=== PATIENT | female | born 2000 | race Caucasian/White ===

== ENCOUNTER 2024-12-08 13:28 | Inpatient (IN) | payer OTHER, SELFPAY ==
[2024-12-08] VITALS (13 sets, daily range): BP systolic 126–179; BP diastolic 56–102; BMI 19.4
--- NOTE | 2024-12-08 08:43 | ED.GENMED ---
History of Present Illness
General
Chief Complaint: Withdrawal Symptoms
Source: patient
Exam Limitations: none
Time Seen by Provider: 12/08/24 08:01
Nursing documentation reviewed up to this point in time: agreed with
History of Present Illness
History of Present Illness:
The patient is a 24-year-old female who arrives from [facility] with complaints of xylazine withdrawal. Patient reports feeling dizzy, sweaty, nausea, feeling anxious, and is vomiting. Patient reports she got to present at 9:00 last night. Patient
denies being given anything, however, it is reported that the patient was given Tylenol 3, clonidine and IM Zofran at around 7 AM this morning. Patient is actively vomiting at the bedside.
Past History
Past History
ED Past Medical History: Other
ED Past Surgical History: Other
Social History
Tobacco: Smoker
Alcohol: None
Drug: IVDA
Personal: Single
Living: [facility]
Employment: Not employed
Family History
Family History: Other
Review of Systems
Review of Systems
Allergies reviewed?: Yes
All Other Systems: ROS reviewed and negative except as documented in HPI and ROS
Constitutional: Reports fatigue
EENT: Reports no symptoms
Respiratory: Reports no symptoms
Cardiac: Reports no symptoms
ABD/GI: Reports nausea, vomiting and anorexia
: Reports no symptoms
Musculoskeletal: Reports no symptoms
Skin: Reports no symptoms
Neurological: Reports headache
Endocrine: Reports no symptoms
Hematologic/Lymphatic: Reports no symptoms
Psychiatric: Reports anxiety
Phy Exam
Physical Exam
Physical Exam:
Physical Exam
General: Patient appears very anxious, pale and tremorous, diaphoretic
Neck: supple. no meningeal signs. Dry mucous membrane
Heart: Tachycardic
Lungs: no acute respiratory distress. clear bilaterally
Abdomen: normal bowel sounds. not tender. no CVAT
Neuro: alert and oriented. no focal neurological deficits
Skin: Track gleason on upper extremities bilaterally
Psychiatric: Cooperative
Extremities: no edema. no calf tenderness. negative homans. good distal pulses
Course
Orders/Labs/Results
Orders:
Orders
12/08/24 08:04
Electrocardiogram (*1) Urgent
Reason for Study: Other
Other Reason for Exam: withdrawal
12/08/24 08:23
Clonidine [Catapres] 0.1 mg PO NOW STA
12/08/24 08:33
Complete Blood Count/With Diff Urgent
Comprehensive Metabolic Panel Urgent
HCG, Serum Qualitative Screen Urgent
Magnesium Urgent
12/08/24 08:37
0.9% Sodium Chloride 1000 ml [Nss] 1,500 ml IV BOLUS
Test Result ONCE
12/08/24 10:47
Fentanyl, Urine Urgent
Lactic Acid Urgent
Urinalysis Reflex To Culture Urgent
Date Specimen was Collected: 12/08/24
Time Specimen was Collected: 09:52
Urine Drug Abuse Screen Urgent
Date Specimen was Collected: 12/08/24
Time Specimen was Collected: 09:52
Urine Microscopic Reflex Cult Urgent
Abnormal Lab Results
12/08/24 12/08/24
08:33 10:47
WBC 40.0 H 10^3/uL
(4.8-10.8)
RBC 4.04 L 10^6/uL
(4.20-5.40)
Hgb 11.8 L g/dL
(12.0-16.0)
Hct 33.4 L %
(37.0-47.0)
Plt Count 512 H 10^3/uL
(130-400)
MPV 11.0 H fL
(7.4-10.4)
Abs Immat Gran (auto) 0.3 H 10^3/uL
(0-0.05)
Absolute Neuts (auto) 37.2 H 10^3/uL
(1.4-6.5)
Absolute Monos (auto) 0.9 H 10^3/uL
(0.1-0.6)
Immature Gran % 0.8 H %
(0-0.5)
Neutrophils % 93.0 H %
(42.2-75.2)
Lymphocytes % 3.7 L %
(20.5-51.1)
Potassium 3.2 L mmol/L
(3.5-5.1)
Carbon Dioxide 20 L mmol/L
(22-30)
Glucose 145 H mg/dl
(70-99)
Lactic Acid 3.5 H mmol/L
(0.7-2.0)
Calcium 10.4 H mg/dl
(8.4-10.2)
Urine Ketones 3+ A
(Negative)
Urine Albumin (Reflex) 1+ A
(Neg - Trace)
Urine Opiates Screen Positive H
(Negative)
Urine Cocaine Screen Positive H
(Negative)
12/08/24 08:33
12/08/24 08:33
Vital Signs
Initial and Last Documented VS:
Initial Vital Signs
Pulse Resp
129 21
12/08/24 08:36 12/08/24 08:36
Last Documented Vital Signs
Temp Pulse Resp BP Pulse Ox
98.8 F 130 16 128/68 97
12/08/24 08:42 12/08/24 09:30 12/08/24 09:30 12/08/24 09:00 12/08/24 09:00
MDM/Problems Addressed
Differential Diagnosis Includes:
Acute xylazine withdrawal, acute hyponatremia, lactic acidosis
MDM/Problems Addressed:
Patient presents with acute nausea, vomiting, tremor and anxiety which she attributes to acute xylazine withdrawal
Chronic conditions affecting care:
Chronic substance abuse
Acute Exacerbation and/or Progression of Chronic Illness:
Patient has acute withdrawal from chronic substance abuse use
*Pulse Oximetry
Patient hypoxic: no
Comment: 97% on room air
*EKG
Interpreted by ED Provider?: Yes
Interpretation: abnormal
Comparison EKG: no comparison EKG present
Rate: normal
Rhythm: sinus
[place]: normal axis
Interval: long QT
QRS Pattern: normal QRS
Ischemia: non-specific ST changes
*Lead Operator Interpretation
Rate: tachycardiac
Interpretation: abnormal
Rhythm: sinus
*Critical Care Note
Total Time (30-74mins, 75-104mins- exclusive of procedures): Not Applicable
Data Reviewed
Review of Other/Old Records Reveals: Other (Present notes of medication list)
Source: patient
ED Attending Note
-
Portions of this chart may have been created with voice recognition software.� Occasional wrong word or��sound alike� substitutions may have occurred due to the inherent limitations of voice recognition software.
Discharge Plan
Departure
Patient Disposition: Admit
Date of Disposition: 12/08/24
Time of Disposition: 10:49
Admit to: Telemetry
Presentation/result/management discussed w/ accepting MD/DO: Hospitalist
Patient with high blood pressure during this ER visit?: Yes
Condition: Fair
Covid-19: Not Applicable
Discharge Problem:
Persistent nausea and vomiting, Xylazine withdrawal, Leukocytosis, Acute lactic acidosis
Referrals:
[facility] [Family Provider, General]
Interventions
Interventions:
*Risk Screen - Suicide Last Done: 12/08/24 08:42
*General Assessment Last Done: 12/08/24 08:42
*Neglect/Abuse Screening Last Done: 12/08/24 08:42
*ED- Fall Risk Assessment Last Done: 12/08/24 08:42
*ED COVID-19 Vaccine History Last Done: 12/08/24 09:29
ED- Neurological Assessment Last Done: 12/08/24 09:29
ED-Psychological Assessment Last Done: 12/08/24 09:29
Discharge Date and Time
Print Language: OCCITAN
[2024-12-08] MEDS: NSS 1500 IV (08:50)
[2024-12-08] MEDS: CATAPRES 0.1 MG PO ×3 (08:50→20:23)
[2024-12-08 08:56] LABS: Hematocrit 33.4 % (37.0-47.0); Hemoglobin 11.8 g/dL (12.0-16.0); Mean Corp Hgb Conc. 35.3 g/dL (33.0-37.0); Mean Corpuscular Volume 82.7 fL (81.0-99.0); Platelet Count 512 10^3/uL (130-400); Red Cell Dist. Width 12.9 % (11.5-14.5)
[2024-12-08 09:04] LABS: HCG, Serum Qualitative Screen Negative
[2024-12-08 09:08] LABS: AST (SGOT) 23 U/L (14-36); Albumin 4.7 g/dl (3.5-5.0); Alkaline Phosphatase 70 U/L (38-126); Blood Urea Nitrogen 13 mg/dl (7-17); Calcium 10.4 mg/dl (8.4-10.2); Carbon Dioxide 20 mmol/L (22-30); Chloride 107 mmol/L (98-107); Glucose 145 mg/dl (70-99); Magnesium 1.9 mg/dl (1.6-2.3); Potassium 3.2 mmol/L (3.5-5.1); Sodium 144 mmol/L (135-145); Total Protein 7.2 g/dl (6.3-8.2); eGFR > 60.00
[2024-12-08 09:28] LABS: ALT (SGPT) < 30 U/L (0-35)
[2024-12-08 10:04] LABS: Nucleated Red Blood Cells % 0 %
[2024-12-08 11:04] LABS: Urine Character Clear (Clear)
[2024-12-08 11:33] LABS: Urine Squamous Cell >30 /LPF (Few)
[2024-12-08 11:35] LABS: Urine Red Blood Cell None Seen /HPF (0-2); Urine White Cell 0-2 /HPF (0-5)
--- NOTE | 2024-12-08 13:20 | HPS.HSE ---
Family Physician
-
Family Physician: [facility]
Chief Complaint
-
Nausea vomiting and anxiety
History of Present Illness
24-year-old female with history of drug use with abuse came [facility] the [facility] with complaints of xylazine withdrawal. Per present staff, patient started to develop nausea and vomiting starting this morning. She came to the detention last
night. Patient agreed on using fentanyl and xylazine. She denies any cocaine use. Per patient she used to do IV drugs however now snorts it. Currently she denies any chest pain. Does have some abdominal discomfort. Denies any shortness of
breath.
Medical History
Past Medical History
Past Medical History: Reports Psychiatric (Drug use with abuse)
Past Surgical History: Reports None
Social History
Tobacco: Smoker
Alcohol: Former
Drug: IVDA
Family History
Family History: Not pertinent
Allergies / Home Medications
Allergies reflects when Allergies were last updated in [employer].
Home Medications with original date entered in [employer]
Allergy/Medication List:
Allergies
Allergy/AdvReac Type Severity Reaction Status Date / Time
No Known Allergies Allergy Verified 12/08/24 08:47
Home Medications
acetaminophen 300 mg-codeine 30 mg tablet 0 tab PO .SEE BELOW 12/08/24
clonidine HCl 0.1 mg tablet 0 mg PO .SEE BELOW 12/08/24
loperamide 2 mg tablet (Anti-Diarrheal (loperamide)) 2 mg PO TIDPRN PRN diarrhea 12/08/24
ondansetron HCl 4 mg tablet 4 mg PO TIDPRN PRN nausea/vomiting 12/08/24
Review of Systems
-
History Source: Patient
A 12 point ROS was completed and negative except as noted: Yes
Abdomen/GI: Reports Abdominal Pain, Nausea and Vomiting
Psych: Reports Anxiety
Physical Exam
Vital Signs
Vital Signs
Temp Pulse Resp BP Pulse Ox
98.8 F 119 20 126/56 99
12/08/24 08:42 12/08/24 12:30 12/08/24 12:30 12/08/24 12:00 12/08/24 11:00
Physical Exam
General: Well Nourished and No Apparent Distress
HEENT: NormoCephalic and Anicteric
Respiratory: Clear and Non Labored Respirations; No Wheezes
Cardiac: S1/S2, Regular Rhythm and Tachycardia
Breast: Deferred by me
GI: Soft, Non Distended and Normal Bowel Sounds
Rectal: Deferred by Provider
Genito-urinary: No Esparza
Musculoskeletal: No Edema
Neuro: Awake, Alert, Oriented and AO x 3
Psych: Calm, Intact Judgment/Insight and Anxious
Laboratory Results
-
12/08/24 08:33
12/08/24 08:33
Laboratory Results
Lactic Acid 3.5 mmol/L (0.7-2.0) H 12/08/24 10:47
Total Bilirubin 0.9 mg/dl (0.2-1.3) 12/08/24 08:33
AST 23 U/L (14-36) 12/08/24 08:33
ALT < 30 U/L (0-35) 12/08/24 08:33
Alkaline Phosphatase 70 U/L (38-126) 12/08/24 08:33
Data Reviewed
-
Lab Data: Labs Reviewed by me and Discussed with Patient
Impression/Plan
-
Nausea, vomiting abdominal discomfort secondary to fentanyl, xylazine withdrawal
Discussed with pharmacy, started clonidine, microdosing protocol
Continue with COWS protocol
QTc elevated, Tigan for antiemetic
Tizanidine as needed
Consult psychiatry
UDS positive for cocaine, opioids
EKG with non specific-ST T abnormality, denies any chest pain
Leukocytosis suspect likely secondary to dehydration and stress from withdrawal
Source likely noninfectious source however need to rule out infection
Check blood culture
UA
Lactic acidosis
Trend
Monitor
Hypercalcemia
Likely secondary to dehydration
Monitor with fluids
Prolonged QTc
Replete potassium
Monitor
DVTppx
SCD's
Full code
I spent a total of 77 minutes with the patient or on the floor. More than 50% of this time involved counseling and coordination of care.
[2024-12-08] MEDS: TIGAN 200 MG IM ×2 (13:43→19:06)
[2024-12-08] MEDS: ATIVAN 1 MG IV (13:46)
--- NOTE | 2024-12-08 14:05 | CM ---
CM following re: discharge planning.
CM consulted to assist pt with substance abuse treatment resources.
Reviewed pt's chart, met with pt and 2 guards at bedside.
Pt is a 24 year old female, admitted with primary dx of Nausea, vomiting abdominal discomfort secondary to fentanyl, xylazine withdrawal.
Pt is admitted from [facility], 2 guards at bedside and per guards pt will return back to [facility] when medically stable.
[facility] nursing report: [phone]
Discharge instructions fax: [phone]
D/C plan: return back to [facility] when medically stable.
CM will follow with discharge plan updates as hospitalization progresses
[2024-12-08] MEDS: NSS 1000 IV (14:10)
[2024-12-08] MEDS: KCL 270 MEQ IV (14:10)
--- NOTE | 2024-12-08 14:59 | CON.MD ---
Consultation - Medical
-
24 yr old F, presenting with opiate & xylazine withdrawal. Pt in police custody, arrived at [facility] yesterday evening & this AM developed nausea & vomiting.
Pt reports hx of prior IVDA, however denies current IV use and reports using intranasally.
UDS + opiate, fentanyl, cocaine
Pt reports using 2 bundles daily of heroin whcih is likely laced with fentanyl & xylazine. Pt reports hx of withdrawal seizures, but is unsure of other details about that particular withdrawal period. Currently with nausea, vomiting, body aches,
chills, anxiety, anxious distress. No avh reported or observed at this time. Is grossly oriented.
Unable to get much more detail of history as pt has difficulty articulating clearly and answering questions meaningfully due to nausea and other w/d sxs.
QTc 472
opiate abuse, severe, w/ severe w/d, likely complicated by xylazine w/d
MSE: female, pooor eye contact, speech is minimal and mumbling. Mood is stressed, affect is congruent to mood. Thought process is goal directed. No evidence of si/hi/avh/delusions. Memory not formally tested. Insight/judgement limited.
Continue microdosing protocol for opiate w/d, continue COWS protocol
Continue prn Tigan/clonidine/tizanidine
Continue to monitor closely, in particular for VS instability or beginnings of delirium/hallucinations, as may need to use precedex or phenobarbital to manage w/d given pts history
[2024-12-08] MEDS: OXYCONTIN (CONTROLLED RELEASE) 40 MG PO (15:38)
[2024-12-08] MEDS: BELBUCA 300 MCG BUCCAL ×2 (15:39→19:05)
[2024-12-08] MEDS: PRECEDEX 100 IV (19:08)
[2024-12-08] MEDS: ZANAFLEX 2 MG PO (19:37)
[2024-12-08 20:12] LABS: Hematocrit 35.5 % (37.0-47.0); Hemoglobin 12.4 g/dL (12.0-16.0); Mean Corp Hgb Conc. 34.9 g/dL (33.0-37.0); Mean Corpuscular Volume 84.1 fL (81.0-99.0); Platelet Count 528 10^3/uL (130-400); Red Cell Dist. Width 13.2 % (11.5-14.5)
[2024-12-08 20:16] LABS: APTT 28.7 Sec (23.4-35.0); INR 1.38; PT 17.3 Sec (11.4-14.6)
[2024-12-08] MEDS: ROXICODONE 20 MG PO (20:20)
[2024-12-08 20:30] LABS: Nucleated Red Blood Cells % 0 %
[2024-12-08] MEDS: BENADRYL 25 MG IV (21:16)
--- NOTE | 2024-12-08 22:12 | PTCARENOTE ---
Pt received as transfer d/t worsening withdraw sx approx 19:00. Pt agitated, restless, pupils dilated, frequent nausea/vomiting. tremors, elevated HR (120s-130s). COWS = 35 on arrival, RASS +3. Scheduled belbuca and catapres given, PRN oxycodone,
tigan, and zanaflex given. Pt started on precedex as ordered, titrated per protocol. Orientation varies, intermittently aware that she is in the hospital/ICU, however mostly states she is in [place] and calling out various names. Inconsistent
with answering questions appropriately. Pt continues to be restless and agitated after meds given, continues to vomit moderate amounts of brown thin emesis--x1 order for benadryl obtained and administered. SR-Sinus tach, prolonged QT. Rate 80s-90s
when calm, when restless rate up to 130s. Breath sounds clear, remains on RA. Bladder scanned upon arrival after frequently stating the need to void, BS >550ml, straight cath for 525ml of sushma urine. L ankle anterior ankle with stage 1, foam
applied. L AC #20 intact and patent, R FA #20 placed upon arrival.
Guards remain at bedside, at this time pt drowsy but restless. Repeatedly asking for staff to go to [facility] to get her xylazine.
[2024-12-09] VITALS (22 sets, daily range): BP systolic 120–149; BP diastolic 83–118; BMI 19.4
[2024-12-09] MEDS: PRECEDEX 100 IV ×5 (00:15→23:49)
--- NOTE | 2024-12-09 01:00 | W.PN.UPDATE ---
Update Note
Progress Note Update
12/09/24 at 0045
Patient with small amount of bloody vomit. She has been having multiple episodes of vomiting and nausea due to drug withdrawal. Currently on precedex gtt for withdrawal symptoms. She has received antiemetics tigan (due to prolonged QT), benadryl
IV, and 1x phenergan; despite this continues to vomit and have nausea. Vital signs stable at this time, no hypotension and tachycardia. Will consult [employer] and trend Hgb.
[2024-12-09] MEDS: BELBUCA 300 MCG BUCCAL ×4 (01:02→12:02)
[2024-12-09] MEDS: OXYCONTIN (CONTROLLED RELEASE) 40 MG PO ×4 (01:02→23:48)
[2024-12-09] MEDS: BENADRYL 25 MG IV ×4 (01:02→21:46)
[2024-12-09] MEDS: PHENERGAN 51 MG IV (02:07)
[2024-12-09] MEDS: NSS 1000 IV (02:08)
[2024-12-09] MEDS: TIGAN 200 MG IM ×2 (02:42→14:39)
[2024-12-09] MEDS: ZANAFLEX 2 MG PO ×2 (02:43→12:02)
[2024-12-09 04:31] LABS: Hematocrit 32.9 % (37.0-47.0); Hemoglobin 11.1 g/dL (12.0-16.0); Mean Corp Hgb Conc. 33.7 g/dL (33.0-37.0); Mean Corpuscular Volume 83.9 fL (81.0-99.0); Nucleated Red Blood Cells % 0 %; Platelet Count 347 10^3/uL (130-400); Red Cell Dist. Width 13.3 % (11.5-14.5)
[2024-12-09 04:38] LABS: ALT (SGPT) 12 U/L (0-35); AST (SGOT) 20 U/L (14-36); Albumin 4.2 g/dl (3.5-5.0); Alkaline Phosphatase 60 U/L (38-126); Blood Urea Nitrogen 6 mg/dl (7-17); Calcium 9.7 mg/dl (8.4-10.2); Carbon Dioxide 14 mmol/L (22-30); Chloride 119 mmol/L (98-107); Estimated Creatinine Clearance 110 ml/min; Glucose 97 mg/dl (70-99); Magnesium 2.3 mg/dl (1.6-2.3); Potassium 3.2 mmol/L (3.5-5.1); Sodium 150 mmol/L (135-145); Total Protein 6.5 g/dl (6.3-8.2); eGFR > 60.00
[2024-12-09] MEDS: KCL 270 MEQ IV (05:36)
[2024-12-09] MEDS: CATAPRES 0.1 MG PO (05:36)
[2024-12-09] MEDS: SODIUM BICARBONATE 1150 MEQ IV ×2 (05:36→13:24)
--- NOTE | 2024-12-09 07:35 | CON.INTV ---
Consultation
Consultation Request
Date/Time Consultation Requested: 12/09
Date/Time Consultation Performed: 12/09
Reason for Consultation: Critical care
Medical History
-
History of Present Illness:
History obtained from the patient and also reviewing medical records. Patient is not a very good historian, confused at times. 24-year-old female with history of drug abuse, [facility] from [facility] with [facility] symptoms. Increased nausea, emesis
noted while in [facility]. Patient admits to using xylazine. Talk screen positive for cocaine and fentanyl as well. Patient snorts her drugs. Upon arrival to [facility], afebrile, pulse 119, breathing at 20, blood pressure 126/56, 99%. Per
ED, chest exam nonlabored with no wheeze. White count 40, normal creatinine. Patient noted to have leukocytosis, acidosis and hypercalcemia. IV fluids started, potassium repleted. Patient presently on Precedex drip, started on withdrawal
protocol. We are asked to help from critical care standpoint
Presently, patient is without any chest pain, shortness of breath, nausea, abdominal pain. She is still confused
.
PMH: Polysubstance abuse (fentanyl, xylazine, cocaine)
Past Medical History
Past Medical History: None (See above)
Past Surgical History: None (See above)
Social History
Tobacco: Non-smoker
Alcohol: None
Drug: Other (Fentanyl, xylazine, cocaine. Snorts)
Personal: Single
Living: With Roomate (Boyfriend)
Employment: Not Employed
Family History
Family History: Unable to Obtain (Patient not giving accurate history, confused)
Allergies / Home Medications
Allergies
Allergy/AdvReac Type Severity Reaction Status Date / Time
No Known Allergies Allergy Verified 12/08/24 08:47
Home Medications
�Medication �Instructions �Recorded �Confirmed �Last Taken �Type
acetaminophen 300 mg-codeine 30 mg 0 tab PO .SEE BELOW 12/08/24 12/08/24 Unknown History
tablet
clonidine HCl 0.1 mg tablet 0 mg PO .SEE BELOW 12/08/24 12/08/24 Unknown History
loperamide 2 mg tablet 2 mg PO TIDPRN PRN diarrhea 12/08/24 12/08/24 Unknown History
(Anti-Diarrheal (loperamide))
ondansetron HCl 4 mg tablet 4 mg PO TIDPRN PRN nausea/vomiting 12/08/24 12/08/24 Unknown History
Review of Systems
-
Unable to Obtain full review of systems at this time due to: Acuity
Vitals / Labs / Diagnostic Testing
Vital Signs
Temp Pulse Resp BP Pulse Ox
100.4 F H 90 24 138/101 100
12/09/24 06:30 12/09/24 06:00 12/09/24 06:00 12/09/24 06:00 12/09/24 06:00
Lab Data
12/09/24 03:49
12/09/24 03:49
Laboratory Results
12/08/24
19:42
PT 17.3 H
INR 1.38
APTT 28.7
Diagnostic Testing:
Physical Exam
-
HEENT: Normocephalic and Anicteric
Cardiovascular: S1/S2, Regular Rhythm (Tachycardic), Murmur (n), Rub (n) and Peripheral Edema (n)
Respiratory: Wheeze (n), Rales (n), Rhonchi (n) and Non-Labored Respirations
GI: Soft, Non Distended and Non Tender
Neurology: Awake, Alert and Other (Disoriented, thinks she is in the [facility])
Skin: Good Color and Other (Scattered tattoos)
General: Comfortable
Assessment
-
24-year-old female with polysubstance abuse, presents with withdrawal symptoms (nausea, emesis, tachycardia, confusion) admitted to ICU for withdrawal management
Recent xylazine use with withdrawal symptoms
Leukocytosis
Acidemia
Hypokalemia, hypercalcemia, hypernatremia
Mild hematemesis
Suspect dehydration
Mildly elevated troponin
Tachycardia
Prolonged QT, improved
Hypertension
Plan/recommendations
At this time, patient remains critically ill
However, nausea, emesis, tachycardia seems to be improved
Currently on withdrawal protocol, improved from buprenorphine, oxycodone
Continue with withdrawal protocol
Will increase clonidine dose, hypertension noted
Leukocytosis improving. Chest x-ray normal, lactate normal, hCG negative, liver function normal
Patient removed Esparza catheter, placed for urinary retention
Follow
Mild hematemesis noted. Remains on Protonix. GI correspondence reviewed
Follow electrolytes, replete potassium
Follow sodium. Presently on bicarbonate drip
DVT prophylaxis: Add mechanical prophylaxis
Reviewed with critical care nursing, respiratory care, pharmacy
TCCT 31 min
--- NOTE | 2024-12-09 07:45 | PTCARENOTE ---
Assumed care of patient. Pt rec'd nauseous and vomitting...benadryl provided. Bed change done. Knows name and ...confused to place and time. Overall, agreeable to ADL's. Confused speech at times...occasionally tearful. Pupils 5/brisk.
Restrained and shackled to bed...see intervention. S1 S2 reg w/ NSR on monitor. +PP. Trace generalized edema. On R/A...sats 99-100%. Lungs diminished but clear. Occasional dry NPC. Abdomen round...+BS. Temp sensing hale draining yellow
urine. Hale care done. Skin pale in color. Optifoams around ankle areas to protect from shackles. Sacrum intact. 20P RFA w/ KCL rider infusing. 20P LAC w/ IVF's and precedex gtt infusing. VS documented. Safe environment confirmed. Will
continue to monitor.
[2024-12-09 08:33] LABS: Amylase 154 U/L (30-110); Lipase 181 U/L (23-300)
--- NOTE | 2024-12-09 08:47 | CON.GI ---
Addendum entered and electronically signed by Helena Stephens DO 12/09/24 09:30:
The patient was seen and examined by me independently in collaboration with the nurse practitioner.
Past medical history/social history/medications/allergies/family history reviewed.
Lab data and imaging data reviewed.
Donaldo is a 24 y.o. w/ pmhx substance abuse admitted from group home w/ concern for withdrawal, recently took heroin, concerned it was laced with fentanyl and Xylazine.
On admission she had fever, labs notable for WBC 40,000, hbg 11.8, platelets 512, INR 1.38, Na 1444 then 150, K 3.2, calcium 10.4, cl 119, bun 14, normal LFT's amylase 154, lipase 181. Tox screen + for opiates, fentanyl, and cocaine.
She had multiple episodes of emesis overnight, some with blood streaks, for which GI is consulted. No Prior EGD or Colonoscopy. Since episode overnight, she has had a few more episodes of vomiting, all bilious.
A/P:
-supportive care
-PPI IV BID then PO PPI x4 weeks then stop
-Hemoglobin stable
-no plans for EGD
-antiemetics
-IVF
-advance diet once nausea/vomiting improves
GI will sign off, please call with questions.
Original Note:
Consultation
-
Date/Time Consultation Requested: 12/09/24 0050
Date/Time Consultation Performed: 12/09/24 0847
Requesting Provider: MORIS Teresa
Performing Provider: MORIS Moore, Karine Stephens DO
Reason for Consultation: hematemesis
Medical History
Chief Complaint / HPI
Chief Complaint: nausea and vomiting with hematemesis
History of Present Illness:
Pt is a 24yo with hx substance abuse with admit from group home with concern for recent heroin laced with Fentanyl and Xylazine and withdrawal. On admission noted with WBC 40,000, hbg 11.8, platelets 512, INR 1.38, Na 1444 then 150, K 3.2,
calcium 10.4, cl 119, bun 14, normal LFT's amylase 154, lipase 181. Tox screen + for opiates, fentanyl, and cocaine. Pt also noted with fever after admission. She was noted overnight with vomiting small amount of blood and asked to see.
At this time patient with some fogginess and confusion but admits to being given drug and unsure what was in them. She has been vomiting since prision and noted tremors with tachycardia. She admits to some wt loss but denies odynophagia,
dysphagia, GERD, abdominal pain, diarrhea, constipation or rectal bleeding. No hx GI issues. No prior EGD or colonoscopy in past.
Past Medical History
Past Medical History: Other (substance abuse )
Social History
Tobacco: Smoker
Alcohol: None
Drug: Other (substance abuse )
Living: [facility] Living (prior with boyfriend )
Family History
Family History: Reviewed & Not Pertinent
Allergies / Home Medications
Allergy/AdvReac Type Severity Reaction Status Date / Time
No Known Allergies Allergy Verified 12/08/24 08:47
�Medication �Instructions �Recorded
acetaminophen 300 mg-codeine 30 mg 0 tab PO .SEE BELOW 12/08/24
tablet
clonidine HCl 0.1 mg tablet 0 mg PO .SEE BELOW 12/08/24
loperamide 2 mg tablet 2 mg PO TIDPRN PRN diarrhea 12/08/24
(Anti-Diarrheal (loperamide))
ondansetron HCl 4 mg tablet 4 mg PO TIDPRN PRN nausea/vomiting 12/08/24
Review of Systems
-
History Source: Patient
Constitutional: Reports Fever, Weight Loss, Fatigue and Other (tremors )
EENT: Reports No Symptoms
Respiratory: Reports No Symptoms
Cardiac: Reports No Symptoms
Abdomen/GI: Reports Nausea and Vomiting
: Reports No Symptoms
Musculoskeletal: Reports No Symptoms
Skin: Reports No Symptoms
Neurological: Reports Weakness
Endocrine: Reports No Symptoms
Hematologic/Lymphatic: Reports Bleeding (reported small volume hematemesis overnight )
Vital Signs
Temp Pulse Resp BP Pulse Ox
101.0 F H 90 24 138/101 100
12/09/24 07:50 12/09/24 06:00 12/09/24 06:00 12/09/24 06:00 12/09/24 06:00
Physical Exam
Exam
General: Other (confusion with tremors )
HEENT: Normocephalic and Anicteric
Respiratory: Clear
Cardiac: Other (tachy)
GI: Soft, Non Tender and Non Distended
Musculoskeletal: No Clubbing and No Cyanosis
Skin: Warm and Dry
Neuro: Awake, Alert and Other (some confused conversation)
Psych: Other (mild anxiety with tremors )
Results
WBC 26.7 10^3/uL (4.8-10.8) H 12/09/24 03:49
Hgb 11.1 g/dL (12.0-16.0) L 12/09/24 03:49
Hct 32.9 % (37.0-47.0) L 12/09/24 03:49
MCV 83.9 fL (81.0-99.0) 12/09/24 03:49
Plt Count 347 10^3/uL (130-400) D 12/09/24 03:49
Absolute Neuts (auto) 22.9 10^3/uL (1.4-6.5) H 12/09/24 03:49
PT 17.3 Sec (11.4-14.6) H 12/08/24 19:42
INR 1.38 12/08/24 19:42
APTT 28.7 Sec (23.4-35.0) 12/08/24 19:42
Sodium 150 mmol/L (135-145) H 12/09/24 03:49
Potassium 3.2 mmol/L (3.5-5.1) L 12/09/24 03:49
Chloride 119 mmol/L (98-107) H 12/09/24 03:49
Carbon Dioxide 14 mmol/L (22-30) L* 12/09/24 03:49
BUN 6 mg/dl (7-17) L 12/09/24 03:49
Creatinine 0.6 mg/dL (0.6-1.0) 12/09/24 03:49
Calcium 9.7 mg/dl (8.4-10.2) 12/09/24 03:49
Total Bilirubin 0.7 mg/dl (0.2-1.3) 12/09/24 03:49
AST 20 U/L (14-36) 12/09/24 03:49
ALT 12 U/L (0-35) 12/09/24 03:49
Alkaline Phosphatase 60 U/L (38-126) 12/09/24 03:49
Amylase 154 U/L (30-110) H 12/09/24 03:49
Lipase 181 U/L (23-300) 12/09/24 03:49
Diagnostic Image Results:
Prior GI Procedures:
EGD: none
Colonoscopy: none
Assessment / Plan
-
Pt is a 24yo with hx substance abuse with admit from group home with concern for recent heroin laced with Fentanyl and Xylazine and withdrawal. On admission noted with WBC 40,000, hbg 11.8, platelets 512, INR 1.38, Na 1444 then 150, K 3.2,
calcium 10.4, cl 119, bun 14, normal LFT's amylase 154, lipase 181. Tox screen + for opiates, fentanyl, and cocaine. Pt also noted with fever after admission. She was noted overnight with vomiting small amount of blood and asked to see. Denies
NSAID use.
-hematemesis
-substance abuse with withdrawal
-fever/leukocytosis
-acidosis
-hypernatremia/hypokalemia/hypercalcemia
PLAN:
etiology of hematemesis likely MW tear with multiple episode of vomiting prior to blood vs other
this am bilious emesis
will add PPI BID
antiemetics
NSAID avoidance
advance diet when vomiting improves
trend hbg per medical team
Hold EGD for now
cont to correct electrolytes and acidosis per medical team
work up for fever per crystalizer
from GI standpoint will sign off as no further hematemesis -- call back if any recurrent hematemesis or drop in hbg and stable for EGD
-
-
Thank you for consultation and allowing me to participate in the patient's care. Please call the solutions market consultant GI physician during the after hours with any questions or concerns.
[2024-12-09] MEDS: NSS (PRESERVATIVE FREE) 10 ML IV ×2 (09:15→20:18)
[2024-12-09] MEDS: PROTONIX IV 40 MG IV ×2 (09:15→20:18)
--- NOTE | 2024-12-09 11:44 | W.PN.HOSP.TC ---
Today's Communication/Plan
-
Monitor vital signs see plan
Check troponin, echo
Continue antibiotics
Follow fever curve
Continue with microdosing protocol, Precedex
Continue bicarb drip
Repeat BMP later today
Replete potassium
Assessment / Plan
Assessment / Plan
General: No apparent distress, lethargic
HEENT: NormoCephalic and Anicteric
Respiratory: Clear and Non Labored Respirations; No Wheezes
Cardiac: S1/S2, Regular Rhythm and Tachycardia
Breast: Deferred by me
GI: Soft, Non Distended
Genito-urinary:Esparza
Musculoskeletal: No Edema
Neuro: Awake
Psych: Calm
Nausea, vomiting abdominal discomfort secondary to fentanyl, xylazine withdrawal
Discussed with pharmacy, started clonidine, microdosing protocol
night of admission; symptoms worse with hallucination. Transferred to ICU for Precedex
Continue with COWS protocol
QTc elevated, Tigan for antiemetic
Tizanidine as needed. Nausea appears to be getting better
Psychiatry following
UDS positive for cocaine, opioids
Currently has Esparza catheter
GI following, added PPI
Trial of diet when patient improves
EKG with non specific-ST T abnormality, denies any chest pain
check trop
Check echo
suspect 2/2 cocaine; patient denies cocaine use but UDS is positive
Leukocytosis suspect likely secondary to dehydration and stress from withdrawal
SIRS (fever, leukocytosis) likely secondary to withdrawal
Source likely noninfectious source however need to rule out infection
Blood culture pending, consider starting empiric antibiotics if persistent fever per adoption specialist
will check echo given hx of drug use
Ucx pending
Hyponatremia
Continue with fluids
Repeat later today
Hypokalemia
Replete
Acute metabolic acidosis
Continue bicarb drip
Repeat labs later today
Lactic acidosis
resolved
Hypercalcemia
Likely secondary to dehydration
resolved
Prolonged QTc
Replete potassium
Monitor
DVTppx
SCD's
Full code
Total Critical Care Time__48___ minutes. I was immediately available to the patient and staff. I personally examined, reviewed labs, diagnostic images/reports, interpretations, treatment plans, discussed patient care with other providers and
family or caregivers (if patient is unable to make decisions), entered orders as appropriate and documented the medical record.
Anticipated Discharge: > 48 hours
Subjective/Interval History
-
Date of Service: December 09, 2024
less nauseous
Objective Data
-
Labs:
Laboratory Results
12/08/24 12/09/24
23:30 03:49
WBC 26.7 H
Hgb 11.1 L
Hct 32.9 L
Plt Count 347 D
Sodium Cancelled 150 H
Potassium Cancelled 3.2 L
Chloride Cancelled 119 H
Carbon Dioxide Cancelled 14 L*
BUN Cancelled 6 L
Creatinine Cancelled 0.6
Glucose Cancelled 97
Calcium Cancelled 9.7
Total Bilirubin 0.7
AST 20
ALT 12
Alkaline Phosphatase 60
Vital Signs:
Vital Signs
Temp Pulse Resp BP Pulse Ox
100.5 F H 94 23 137/96 100
12/09/24 10:40 12/09/24 11:30 12/09/24 11:30 12/09/24 11:00 12/09/24 11:30
I&O
12/08/24 12/09/24 12/10/24
06:59 06:59 06:59
Intake Total 1122.8 / 1290.8 840 / 840
Output Total 1475 / 1475 525 / 525
Balance -352.2 / -184.2 315 / 315
--- NOTE | 2024-12-09 11:45 | PTCARENOTE ---
Pt self removed hale catheter. Balloon intact. Able to use bedpan...continent for moderate brown BM. Remains on R/A..sats 99-100%. No other major changes in physical assessment. Will continue to monitor.
[2024-12-09] MEDS: CATAPRES 0.2 MG PO ×2 (12:02→23:49)
[2024-12-09 13:24] LABS: Troponin I 0.040 ng/ml
[2024-12-09 14:01] LABS: Blood Urea Nitrogen 5 mg/dl (7-17); Calcium 10.6 mg/dl (8.4-10.2); Carbon Dioxide 18 mmol/L (22-30); Chloride 114 mmol/L (98-107); Estimated Creatinine Clearance 110 ml/min; Glucose 112 mg/dl (70-99); Potassium 3.3 mmol/L (3.5-5.1); Sodium 149 mmol/L (135-145); eGFR > 60.00
[2024-12-09] MEDS: LR 1000 IV (15:26)
--- NOTE | 2024-12-09 15:45 | PTCARENOTE ---
Echo done per MD. Pt w/ nausea/vomitting...prn tigan and benadryl provided. Full bed change w/ hair wash/mouth care completed. Remains on R/A..sats 100%. Remains on precedex gtt. No major changes in physical assessment. Pt released from
[facility] living...need to f/u w/ court date. Will continue to monitor closely.
[2024-12-09] MEDS: KCL 160 MEQ IV (15:57)
--- NOTE | 2024-12-09 16:51 | CM ---
Discharge POC: Return to [facility]. May be released from [facility] but not definitive as yet.
[2024-12-09] MEDS: SUBUTEX 2 MG SL ×2 (17:33→21:46)
[2024-12-09 18:53] LABS: Troponin I 0.028 ng/ml
--- NOTE | 2024-12-09 21:16 | PTCARENOTE ---
Pt received at 19:00. Pt on precedex, RASS -1. COWS = 14. Pt oriented to self, pupils 3-5mm. Intermittently aware that she is in [facility], otherwise unsure. SR 70s-90s, low 100s at times. Trace generalized edema, palpable pulses. RA, shallow
respirations, clear/diminished t/o, Stated nausea initially, now denies. No episodes of emesis at noted this time. Denies urge to void, no urine output at this time--bladder scan/straight cath per protocol. x2 PIVs intact/flushed/patent. Precedex
continues at 1.5mcg/kg/hr. Safe environment maintained, pt frequently repositions self.
[2024-12-09 22:19] LABS: Blood Urea Nitrogen 6 mg/dl (7-17); Calcium 10.4 mg/dl (8.4-10.2); Carbon Dioxide 17 mmol/L (22-30); Chloride 116 mmol/L (98-107); Estimated Creatinine Clearance 110 ml/min; Glucose 112 mg/dl (70-99); Potassium 3.5 mmol/L (3.5-5.1); Sodium 147 mmol/L (135-145); eGFR > 60.00
[2024-12-10] VITALS (12 sets, daily range): BP systolic 108–141; BP diastolic 76–103; BMI 19.7
[2024-12-10 04:08] LABS: Hematocrit 31.5 % (37.0-47.0); Hemoglobin 10.8 g/dL (12.0-16.0); Mean Corp Hgb Conc. 34.3 g/dL (33.0-37.0); Mean Corpuscular Volume 85.1 fL (81.0-99.0); Nucleated Red Blood Cells % 0 %; Platelet Count 259 10^3/uL (130-400); Red Cell Dist. Width 13.5 % (11.5-14.5)
[2024-12-10 04:29] LABS: ALT (SGPT) 12 U/L (0-35); AST (SGOT) 22 U/L (14-36); Albumin 4.2 g/dl (3.5-5.0); Alkaline Phosphatase 51 U/L (38-126); Blood Urea Nitrogen 8 mg/dl (7-17); Calcium 10.2 mg/dl (8.4-10.2); Carbon Dioxide 18 mmol/L (22-30); Chloride 116 mmol/L (98-107); Estimated Creatinine Clearance 110 ml/min; Glucose 115 mg/dl (70-99); Potassium 3.6 mmol/L (3.5-5.1); Sodium 148 mmol/L (135-145); Total Protein 6.4 g/dl (6.3-8.2); eGFR > 60.00
[2024-12-10] MEDS: LR 1000 IV (05:41)
[2024-12-10] MEDS: PRECEDEX 100 IV (05:41)
--- NOTE | 2024-12-10 07:49 | W.PN.INTV ---
Today's Communication / Plan
Recommendations
Wean off Precedex
Potassium supplementation
Consider advancing diet
PT/OT
Follow white count
Once off Precedex, consider transfer out of ICU. We will sign off once transferred. Please call with questions
Assessment
-
24-year-old female with polysubstance abuse, presents with withdrawal symptoms (nausea, emesis, tachycardia, confusion) admitted to ICU for withdrawal management
Recent xylazine use with withdrawal symptoms
Leukocytosis
Acidemia
Hypokalemia, hypercalcemia, hypernatremia
Mild hematemesis
Suspect dehydration
Mildly elevated troponin
Tachycardia
Prolonged QT, improved
Hypertension
Plan/recommendations
At this time, patient appears to be improved overall
Nausea seems to be improved, remains n.p.o.
Currently on withdrawal protocol, improved from buprenorphine, oxycodone, clonidine
Moving forward
Continue with withdrawal protocol
Follow white count, persistent leukocytosis noted. Chest x-ray normal, lactate normal, hCG negative, liver function normal
Echocardiogram unremarkable, no obvious valvular abnormality
Continue with straight catheterization as needed
Mild hematemesis noted. Remains on Protonix. GI correspondence reviewed
Follow electrolytes, replete potassium
Follow sodium. Bicarbonate drip discontinued
PT/OT, encourage ambulation
DVT prophylaxis: mechanical prophylaxis
Reviewed with critical care nursing, respiratory care, pharmacy
Subjective Dataa
Subjective Data
Date of Service:
Date of Service: December 10, 2024
Subjective:
Patient appears to be improved, answering questions more appropriately, Precedex has been weaned down. Blood pressure improved. Intermittent bradycardia noted
Objective Data
Data Reviewed
Vital Signs / I&O / Oxygen:
Vital Signs
Temp Pulse Resp BP Pulse Ox
99.9 F 47 16 122/93 100
12/10/24 06:00 12/10/24 05:00 12/10/24 05:00 12/10/24 05:00 12/09/24 20:30
Intake and Output
12/09/24 12/10/24 12/11/24
06:59 06:59 06:59
Intake Total 1122.8 / 1290.8 3402.4 / 3402.4
Output Total 1475 / 1475 1375 / 1375
Balance -352.2 / -184.2 7.4 / 2026.4
SaO2 100
Physical Exam
General: Comfortable
HEENT: Normocephalic and Anicteric
Cardiovascular: S1-S2, Regular Rhythm, Murmur (n) and Rub (n)
Respiratory: Wheeze (n), Crackles (n), Rhonchi (n) and Stridor (n)
GI: Soft, Non Distended and Non Tender
Neurology: Lethargic (Sleeping but arousable)
Skin: Good Color (n), Cyanosis (n) and Other (Scattered tattoos)
Labs/Micro/Reports
Lab Data
12/10/24 03:39
12/10/24 03:39
Microbiology
12/08/24 19:42 Blood/Venous Blood Culture - Preliminary
No Growth in 24 hours- Final report to follow
12/08/24 19:42 Blood/Venous Blood Culture - Preliminary
No Growth in 24 hours- Final report to follow
12/08/24 10:47 Urine Urine Culture - Final
No Significant Growth
[2024-12-10] MEDS: CATAPRES 0.2 MG PO (08:05)
[2024-12-10] MEDS: OXYCONTIN (CONTROLLED RELEASE) 40 MG PO (08:05)
[2024-12-10] MEDS: PROTONIX IV 40 MG IV (08:06)
[2024-12-10] MEDS: SUBUTEX 2 MG SL (08:06)
[2024-12-10] MEDS: NSS (PRESERVATIVE FREE) 10 ML IV (08:06)
--- NOTE | 2024-12-10 08:33 | PTCARENOTE ---
pt received from previous rn- drowsy but arousable, alert and calm at this time. pt able to say name, she's in [facility] but does not know name of facility, and states month and year. rass 0 to -1. weaning precedex as tolerated, ivf continue as
per order. all safety precautions in place, call casey within reach. pt able to turn and reposition self. no complaints at this time.
--- NOTE | 2024-12-10 09:37 | PTCARENOTE ---
pt discussed in rounds with raquel Schaffer to start on regular diet. precedex off. pt alert and cooperative.
[2024-12-10] MEDS: TIGAN 200 MG IM (09:47)
--- NOTE | 2024-12-10 10:17 | W.PN.UPDATE ---
Update Note
Progress Note Update
Patient seen at bedside, sleepy but arousable. Not interested in any conversation today, she only mumbles a bit. She briefly makes eye contact and then shuts her eyes again. Chart reviewed. Discussed with RN. Precedex will be turned off as she did
well overnight. Denies any specific issues or concerns at the moment. Hoping to get more cooperation in the next day or so. It appears N/V improving. VSS, labs improving.
Impression/Recommendations: Opiate abuse, severe, w/ severe withdrawal, likely complicated by xylazine - Continue microdosing protocol for opiate w/d, continue COWS protocol. Precedex will be turned off, continue to monitor for S/S of withdrawal.
[2024-12-10] MEDS: BENADRYL 25 MG IV (10:28)
--- NOTE | 2024-12-10 12:06 | W.PN.HOSP.TC ---
Addendum entered and electronically signed by Francesco Chambers MD 12/10/24 13:07:
Notified by RN that patient wanted to leave AMA. Discussed with patient regarding risk of leaving AGAINST MEDICAL ADVICE including worsening symptoms. She understood the risk however still wanted to leave AMA. AMA papers signed. RN also notified
authorities who came to pick patient up.
Original Note:
Today's Communication/Plan
-
monitor vitals
see plan
trial of diet
off precedex
monitor nausea and vomiting
cw microdosing,clonidine
monitor sodium
bladder scan
Assessment / Plan
Assessment / Plan
General: No apparent distress, lethargic
HEENT: NormoCephalic and Anicteric
Respiratory: Clear and Non Labored Respirations; No Wheezes
Cardiac: S1/S2, Regular Rhythm and Tachycardia
GI: Soft, Non Distended
Genito-urinary:Esparza
Musculoskeletal: No Edema
Neuro: Awake
Psych: Calm
Nausea, vomiting abdominal discomfort secondary to fentanyl, xylazine withdrawal
Discussed with pharmacy, started clonidine, microdosing protocol
night of admission; symptoms worse with hallucination. Transferred to ICU for Precedex, Precedex off this morning
Continue with COWS protocol
QTc elevated, now QTc improving, Tigan for antiemetic
Tizanidine as needed. Nausea appears to be getting better
Psychiatry following
UDS positive for cocaine, opioids
Removed Esparza catheter, straight cath as needed, bladder scan
GI following, added PPI
Trial of diet however still nauseous and vomit
EKG with non specific-ST T abnormality, denies any chest pain
Mild troponin elevation
suspect 2/2 cocaine; patient denies cocaine use but UDS is positive
Leukocytosis suspect likely secondary to dehydration and stress from withdrawal
SIRS (fever, leukocytosis) likely secondary to withdrawal
Source likely noninfectious source however need to rule out infection
Blood culture NGTD; currently monitor off antibiotics
will check echo given hx of drug use, echo without any vegetation. Will follow fever curve
Ucx no significant growth
Hypernatremia
If does not eat then will start D5 water
Repeat later today
Hypokalemia
Replete
Acute metabolic acidosis
Now off bicarb drip
Monitor
Repeat labs later today
Lactic acidosis
resolved
Hypercalcemia
Likely secondary to dehydration
resolved
DVTppx
SCD's
Full code
I spent a total of 53 minutes with the patient or on the floor. More than 50% of this time involved counseling and coordination of care.
Anticipated Discharge: > 48 hours
Subjective/Interval History
-
Date of Service: December 10, 2024
Lethargic
Objective Data
-
Labs:
Laboratory Results
12/10/24
03:39
WBC 21.7 H
Hgb 10.8 L
Hct 31.5 L
Plt Count 259 D
Sodium 148 H
Potassium 3.6
Chloride 116 H
Carbon Dioxide 18 L
BUN 8
Creatinine 0.6
Glucose 115 H
Calcium 10.2
Total Bilirubin 0.8
AST 22
ALT 12
Alkaline Phosphatase 51
Vital Signs:
Vital Signs
Temp Pulse Resp BP Pulse Ox
98.5 F 61 21 137/94 99
12/10/24 11:35 12/10/24 11:00 12/10/24 11:00 12/10/24 11:00 12/10/24 11:00
I&O
12/09/24 12/10/24 12/11/24
06:59 06:59 06:59
Intake Total 1122.8 / 1290.8 3402.4 / 3495.6 422.4 / 422.4
Output Total 1475 / 1475 1375 / 1375
Balance -352.2 / -184.2 2026.4 / 2119.6 422.4 / 422.4
--- NOTE | 2024-12-10 12:43 | PTCARENOTE ---
pt requesting to leave ama, Dr. Chambers at bedside, pt signed paperwork with md and aware of risks. ivs and tele monitor removed, pt given belongings. ama form in chart.
--- NOTE | 2024-12-10 12:51 | W.DCSUMMARY ---
Discharge Summary
Discharge Data
Date of Admission: 12/08/24
Date of Discharge: 12/10/24
-
Pending Results: Yes
Hospital Course
Discharge diagnosis:
Fentanyl, xylazine withdrawal
SIRS secondary to withdrawal
Fever
Hyponatremia
Hypokalemia
Acute metabolic acidosis
Lactic acidosis
Hypercalcemia
Hospital course:
24-year-old female with past medical history of drug use with abuse came to the hospital from residential with nausea vomiting abdominal discomfort secondary to fentanyl, xylazine withdrawal. Patient symptoms continue to get worse or admission and given
her worsening pulsation she was transferred to the ICU for Precedex. She was also on clonidine and microdosing protocol for her withdrawal. She also had leukocytosis which was likely thought was secondary to dehydration and stress from withdrawal.
She also had fever which appeared to be secondary to withdrawal. Her leukocytosis continue to improve over time as her withdrawal was improving. She was observed off antibiotics. Given her fever echocardiogram was also done which was without any
vegetation. She also had metabolic acidosis and was started on bicarb drip. Over time when her withdrawal symptoms were improving, she decided to leave AGAINST MEDICAL ADVICE. Risk of leaving AMA was discussed with patient however she still
decided to leave AMA. Patient left AMA for residential on 12/10/2024.
Discharge Plan
-
Patient Disposition: Against Medical Advice
Referrals:
[facility] [Family Provider, General]
Prescriptions:
No Action
clonidine HCl 0.1 mg Tablet
0 mg PO .SEE BELOW
Patient Comments:
12/08/2024, status of blister pack is still pending per [facility].
Rx Instructions:
1 tab TID (start date: 12/07/2024; end date: 12/10/2024)
1 tab BID (start date: 12/11/2024; end date: 12/12/2024)
0.5 tab BID (start date: 12/13/2024; end date: 12/14/2024)
ondansetron HCl 4 mg Tablet
4 mg PO TIDPRN PRN (Reason: nausea/vomiting)
Patient Comments:
12/08/2024, start date: 12/07/2024; end date: 12/09/2024; status of blister pack is still pending per [facility].
Rx Instructions:
PO or IM
loperamide [Anti-Diarrheal (loperamide)] 2 mg Tablet
2 mg PO TIDPRN PRN (Reason: diarrhea)
Patient Comments:
12/08/2024, start date: 12/07/2024; end date: 12/11/2024; status of blister pack is still pending per [facility].
acetaminophen-codeine [Tylenol-Codeine #3] 300-30 mg Tablet
0 tab PO .SEE BELOW
Patient Comments:
12/08/2024, status of blister pack is still pending per [facility].
Rx Instructions:
2 tabs TID (start date: 12/07/2024; end date: 12/09/2024)
2 tabs BID (start date: 12/10/2024; end date: 12/11/2024)
1 tab BID (start date: 12/12/2024; end date: 12/13/2024)
1 tab HS (start date: 12/14/2024; end date: 12/14/2024)
Discharge Date and Time
Discharge Date/Time: 12/10/24 12:50
Print Language: DJIBOUTIAN
--- NOTE | 2024-12-10 13:21 | CM ---
Patient was released from [facility] on 12/09/24. Today she signed out AMA.
--- NOTE | 2024-12-12 11:16 | W.PN.UPDATE ---
Update Note
Progress Note Update
Elizabethos-coverage today on 12/12/2024. Received a call from microbiology about blood cultures positive with gram-negative awaiting identification. 1 out of the 2 cultures and gram-negative's are typically real infections but awaiting final data. I did
reach out to contact number and discussed with boyfriend. Apparently patient is not there and he is waiting for her to show up and he will pass on the information to her. I instructed to come back to the hospital if possible to treat for possible
bacteremia since we do not have enough information at the moment.
== END 2024-12-10 12:50 | disposition left against medical advice (07) | DRG 894 ==
LOC: ICU 13:28
PROVIDERS: ADMITTING PHYSICIAN Internal Medicine; CONSULT PHYSICIAN Internal Medicine; CONSULT PHYSICIAN Psychiatry & Neurology Psychiatry; EMERGENCY PHYSICIAN Emergency Medicine; OTHER PHYSICIAN Internal Medicine Critical Care Medicine
DX: F11.13 Opioid abuse with withdrawal (principal); E87.21 Acute metabolic acidosis; E87.1 Hypo-osmolality and hyponatremia; E87.0 Hyperosmolality and hypernatremia; R65.10 Systemic inflammatory response syndrome (SIRS) of non-infectious origin without acute organ dysfunction; F17.200 Nicotine dependence, unspecified, uncomplicated; E83.52 Hypercalcemia; E87.6 Hypokalemia; Z53.29 Procedure and treatment not carried out because of patient's decision for other reasons; F11.90 Opioid use, unspecified, uncomplicated
CPT/HCPCS: 71045; 80048; 80053; 80306; 80307; 81003; 81015; 82077; 82150; 82248; 83605; 83690; 83735; 84100; 84484; 84703; 85025; 85610; 85730; 87040; 87070; 87086; 87205; 93005; 93306; 96360; 96361; 99285